=== PATIENT | female | born 1995 | race African-American/Black ===

== ENCOUNTER 2025-06-28 11:34 | Emergency (ER) | payer MEDICAID, MEDICARE ==
[~2025-06-28] VITALS: Ht 175.3 cm; Wt 71.0 kg
[2025-06-28 11:49] VITALS: O2SAT 100
[2025-06-28] MEDS: ACETAMINOPHEN 325MG TABLET PO ONE (13:23)
[2025-06-28] MEDS: TETRACAINE/BENZOCAINE/BUTAMBEN 20 GM SPRAY MM NR (13:25)
[2025-06-28] MEDS ORDERED: AMOX1TAB16 MT (13:36)
[2025-06-28] MEDS ORDERED: NEOM28OI48 TP (13:36)
[2025-06-28 13:52] VITALS: BP 115/70; PULSE 80; RESP 15; TEMP 36.7; O2SAT 99
== END 2025-06-28 13:55 | disposition home or self-care (01) ==
LOC: ER 11:34
DX: L03.011 Cellulitis of right finger (principal)
CPT/HCPCS: 10060; 26010; 73130; 99283